=== PATIENT | male | born 1985 | race Caucasian/White ===

== ENCOUNTER 2017-01-21 08:12 | Emergency (ER) | payer OTHER ==
--- NOTE | 2017-01-21 09:19 | PROVIDER DOCUMENTATION ---
HPI-EENT General - General Chief Complaint: Earache Stated Complaint: EARACHE Time Seen by Provider: 01/21/17 09:15 Source: other (Caregivers) Allergies/Adverse Reactions: Patient Allergies Allergy/AdvReac Type Severity Reaction Status Date / Time No Known Allergies Allergy Verified 01/21/17 08:23 Home Medications: Home Medication List Medication Instructions Recorded Confirmed Last Taken Type Benztropine [Cogentin] 2 mg PO BID 04/21/13 01/21/17 01/21/17 History Divalproex [Depakote] 1,000 mg PO BID 04/21/13 01/21/17 01/21/17 History Risperidone [Risperdal] 4 mg PO BID 04/21/13 01/21/17 01/21/17 History Acetaminophen [Acetaminophen Extra 2 tab PO Q4-6H PRN PRN 11/06/15 01/21/1709/29 History Strength] Carbamazepine 1 tab PO TID 11/06/15 01/21/17 01/21/17 History Clonazepam 1 tab PO BID 11/06/15 01/21/17 01/21/17 History Olanzapine 1 tab PO BID 11/06/15 01/21/17 01/21/17 History Clotrimazole/Bmethasone Lotion 1 applicatn TOP BID #1 bottle 08/19/16 01/21/17 01/21/17 Rx [Lotrisone Lotion] Amoxicillin/Pot Clavulanate 875 mg PO Q12HR #30 tablet 01/21/17 Unknown Rx [Augmentin] Cholecalciferol (Vitamin D3) 5,000 unit PO DAILY 01/21/17 01/21/17 01/20/17 History [Vitamin D3] Fluticasone Propionate [Flovent 50 mcg IH DAILY 01/21/17 01/21/17 01/21/17 History Diskus] Polyethylene Glycol 3350 [Glycolax] 119 gm PO DAILY 01/21/17 01/21/17 01/21/17 History - History of Present Illness-EENT General Nature of Presenting Problem: 31 y/o male presents to the ER via caregivers with complaint of right ear pain. Caregivers state the pt started complaining yesterday that his ear hurt. This morning the pt woke up with swelling in the ear as well as around the ear. Caregivers deny fever. EENT Location: reports: ear (R) Onset/Duration: reports: this morning Timing: reports: still present Review of Systems - Adult - REVIEW OF SYSTEMS - ADULT Constitutional: denies: chills, fever Eyes: reports: no symptoms reported Ears, Nose, Mouth & Throat: reports: ear pain (right) Cardiovascular: reports: no symptoms reported Respiratory: reports: no symptoms reported Gastrointestinal: reports: no symptoms reported Genitourinary: reports: no symptoms reported Musculoskeletal: reports: no symptoms reported Integumentary: reports: no symptoms reported Neurological: reports: no symptoms reported Psychiatric: reports: no symptoms reported Endocrine: reports: no symptoms reported Hematologic/Lymphatic: reports: no symptoms reported Allergic/Immunologic: reports: no symptoms reported All Other Systems: Reviewed and Negative Past History - Adult - PAST MEDICAL HISTORY-ADULT Review of Records: reports: Nursing Assessment Review, Medications Reviewed Major Childhood Illnesses: reports: denies history Cardiovascular: reports: other (tachycardia) Respiratory: reports: denies history Gastrointestinal: reports: denies history Obstetrical/Gynecological: reports: denies history Genitourinary: reports: denies history Musculoskeletal: reports: denies history Neurological: reports: Seizures/Epilepsy, other (psychosis nos, inpulse control disorder, autism, pervasive developmental disorder) Endocrine/Immune: reports: denies history Other Conditions: reports: denies history - PRIOR SURGERIES/PROCEDURES Surgical/Procedure History: reports: colonoscopy - IMMUNIZATION STATUS Childhood Immunizations: See Nurse Assessment Flu Vaccine: See Nurse Assessment Physical Exam- EENT - Physical Exam EENT General Appearance: lethargic, slow to respond Ear Exam: right ear: erythema, swelling, tenderness Nasal Exam: normal inspection. negative: discharge Neck: supple, normal inspection Respiratory: lungs clear, normal breath sounds Cardiovascular: normal peripheral pulses, no edema Extremity: non-tender, normal inspection Integumentary: normal color, warm/dry Neurologic: grossly normal, no motor/sensory deficits Psych/Mental Status: normal mood/affect, oriented x 3 Progress - CT/MRI 1 CT Study: Head Impression: Abnormal CT Results: mastoiditis and otitis media per Dr. Morris Departure - Departure Time of Disposition Order: 10:09 DIAGNOSIS: Mastoiditis Qualifiers: Laterality: right Qualified Code(s): H70.91 - Unspecified mastoiditis, right ear Otitis media Qualifiers: Otitis media type: unspecified Laterality: right Chronicity: unspecified Qualified Code(s): H66.91 - Otitis media, unspecified, right ear Disposition: HOME 01 Certified Medical Emergency: Emergent Condition: Stable Additional Instructions: ED Follow Up Instructions: You have been treated by a care provider in the Emergency Department. These instructions are being provided to you so you can have an understanding of how to care for yourself upon discharge. Upon discharge from the Emergency Department, you are responsible for making arrangements for follow-up care by a physician of your choice. Take all prescribed medications as directed. Return to the Emergency Department immediately for any new or worsening symptoms. You may call the Physician Referral phone number at [phone] to obtain a list of Physicians who are taking new patients. Prescriptions: Amoxicillin/Pot Clavulanate [Augmentin] 875 mg PO Q12HR #30 tablet Referrals: Criss Palacios CRNP [Primary Care Provider] - Instructions: Amoxicillin; Clavulanic Acid tablets, Otitis Externa, Otitis Media, Adult, Mastoiditis, Pediatric Attestation - Scribe Verification/Attestation Scribe:: Nancy Dhillon Acting as Scribe for:: Hugh Morris Scribe documention review:: This chart was documented by a scribe and accurately reflects the service the provider performed and the decisions made by the provider.
--- NOTE | 2017-01-21 10:24 | Diag Imaging Result Document ---
PROCEDURE NAME: HEAD W/O CONTRAST - 01/21/2017 CT HEAD WITHOUT CONTRAST: A dose reduction protocol was used. COMPARISON: 11/06/2015. FINDINGS: There is no evidence of intracranial hemorrhage, mass effect, midline shift, or hydrocephalus. There is no evidence of infarct. There is subcutaneous soft tissue swelling at the right external ear. The right external auditory canal is substantially narrow/opacified. This is consistent with substantial otitis externa on the right. The right internal auditory canal is mostly opacified, and there may be some inward retraction in the right tympanic membrane. This is compatible with otitis media. There is possibly mild mastoiditis on the right, but the right mastoid air cells are mostly aerated. IMPRESSION: 1. No visible acute intracranial abnormality. 2. Subcutaneous soft tissue swelling at right external ear. 3. Substantial otitis externa on the right. Otitis media on the right. Possible mild right mastoiditis. Results discussed with Dr. Morris at 9:49 a.m. on 01/21/2017. [facility]
[2017-01-21 10:33] VITALS: BP 109/65
[2017-01-21 10:39] LABS: BASO% 0.1 % (0.0-0.8); EOS# 0.02 X1000 (0.0-0.7); EOS% 0.2 % (0.0-10.0); HEMOGLOBIN 11.5 g/dL (14.0-18.0); IMM GRAN# 0.04 X1000 (0.0-0.04); IMM GRAN% 0.4 % (0.0-0.5); LYMPH# 1.66 X1000 (1.2-3.4); LYMPH% 15.7 % (20.5-51.1); MANUAL DIFF NEEDED? YES; MCH 35.5 PG (27-31); MCHC 34.8 g/dL (33-37); MCV 101.9 FL (81-99); MONO# 2.67 X1000 (0.11-0.59); MONO% 25.2 % (1.7-9.3); MPV 8.8 FL (7.4-10.4); NEUT% 58.4 % (42.2-75.2); PLT 87 X1000 (130-400); RBC 3.24 XMIL (4.7-6.1)
[2017-01-21 11:05] LABS: LYMPHS 23 % (21-51); MONO 22 % (1-9)
[2017-01-21 11:06] LABS: HYPOCHROM OCCASIONAL
== END 2017-01-21 10:54 | disposition home or self-care (01) ==
LOC: P.ED 08:12
DX: H70.91 Unspecified mastoiditis, right ear (principal); H66.91 Otitis media, unspecified, right ear; H92.01 Otalgia, right ear; R53.83 Other fatigue; R56.9 Unspecified convulsions; F63.9 Impulse disorder, unspecified; F84.0 Autistic disorder; Z79.899 Other long term (current) drug therapy; Z79.51 Long term (current) use of inhaled steroids
CPT/HCPCS: 70450; 85025